=== PATIENT | female | born 1950 | race Caucasian/White ===

== ENCOUNTER → 2017-05-02 | Outpatient (CLI) | payer OTHER ==
[~2017-05-02] MED LIST: ALTACE5 M1 PO; ARIMIDEX PO; ASPIRIN EC81 M1 PO; BONIVA150 MG PO; CALCIUM 500 +1 EAC5 PO; CRESTOR10 MG PO; DIOVAN40 MG PO; FOSAMAX 70 MG T70 MG PO; VALIUM5 MG PO; VITAMIN D-32000 UNIT PO; ZOLOFT50 MG PO
== END ==
LOC: RAD 13:53
DX: Z12.31 Encounter for screening mammogram for malignant neoplasm of breast (principal)

== ENCOUNTER → 2017-11-20 | Outpatient (CLI) | payer OTHER | LOC: RAD 09:30 | DX: S32.020A Wedge compression fracture of second lumbar vertebra, initial encounter for closed fracture (principal); M47.816 Spondylosis without myelopathy or radiculopathy, lumbar region; M41.86 Other forms of scoliosis, lumbar region; M25.551 Pain in right hip; W19.XXXA Unspecified fall, initial encounter; X58.XXXA Exposure to other specified factors, initial encounter; Y93.89 Activity, other specified; Y92.89 Other specified places as the place of occurrence of the external cause; Y99.8 Other external cause status ==

== ENCOUNTER → 2017-11-22 | Outpatient (CLI) | payer OTHER ==
[~2017-11-22] MED LIST changes: -CALCIUM 500 +1 EAC5 PO; -DIOVAN40 MG PO; -FOSAMAX 70 MG T70 MG PO; -VALIUM5 MG PO; -VITAMIN D-32000 UNIT PO; -ZOLOFT50 MG PO
== END ==
LOC: MRI 07:56
DX: S32.020A Wedge compression fracture of second lumbar vertebra, initial encounter for closed fracture (principal); M48.061 Spinal stenosis, lumbar region without neurogenic claudication; M51.36 Other intervertebral disc degeneration, lumbar region; X58.XXXA Exposure to other specified factors, initial encounter; Y93.89 Activity, other specified; Y92.89 Other specified places as the place of occurrence of the external cause; Y99.8 Other external cause status; Z91.81 History of falling

== ENCOUNTER → 2018-04-02 | Outpatient (CLI) | payer OTHER ==
[~2018-04-02] MED LIST changes: +CALCIUM 500 +1 EAC5 PO; +DIOVAN40 MG PO; +FOSAMAX 70 MG T70 MG PO; +VALIUM5 MG PO; +VITAMIN D-32000 UNIT PO; +ZOLOFT50 MG PO
== END ==
LOC: MRI 09:57
DX: I67.82 Cerebral ischemia (principal)